=== PATIENT | female | born 1980 | race Two or more races ===

== ENCOUNTER 2022-11-14 08:22 | Emergency (ER) | payer OTHER, MEDICAID ==
[~2022-11-14] VITALS: Ht 157.5 cm; Wt 58.1 kg
[2022-11-14 09:09] LABS: BASOPHILS % (AUTO) 0.2 % (0.0-2.0); EOSINOPHILS # (AUTO) 0.1 K/uL (0.0-0.7); EOSINOPHILS % (AUTO) 1.7 % (0.0-6.0); HEMATOCRIT 45 % (33-45); HEMOGLOBIN 15.1 g/dL (11.5-14.8); LYMPHOCYTES # (AUTO) 0.9 K/uL (0.8-4.8); LYMPHOCYTES % (AUTO) 14.1 % (20.0-44.0); MEAN CORPUSCULAR HEMOGLOBIN 32 PG (26.0-33.0); MEAN CORPUSCULAR HGB CONC 34 g/dl (31.0-36.0); MEAN CORPUSCULAR VOLUME 93 fL (82-100); MONOCYTES # (AUTO) 0.4 K/uL (0.1-1.30); MONOCYTES % (AUTO) 5.9 % (2.0-12.0); NEUTROPHILS # (AUTO) 4.8 K/uL (1.8-8.9); NEUTROPHILS % (AUTO) 78.1 % (43.0-81.0); PLATELET COUNT (AUTO) 252 K/uL (150-450); RED BLOOD CELL COUNT(AUTO) 4.79 MIL/uL (4.0-5.2); RED CELL DISTRIBUTION WIDTH 12.8 % (11.5-15.0); WHITE BLOOD COUNT (AUTO) 6.2 K/uL (4.3-11.0)
[2022-11-14 09:20] LABS: CALCIUM, SERUM 9.2 mg/dL (8.5-10.1); CREATININE 0.8 mg/dL (0.6-1.3); POTASSIUM 3.4 mmol/L (3.5-5.1)
[2022-11-14] MEDS ORDERED: VANCOMYCIN 1 GM in IV D5W 250 ML IV ONE (10:30)
[2022-11-14] MEDS ORDERED: VANCOMYCIN 1 GM /D5W 250 ML PB IV ONE (10:35)
[2022-11-14] MEDS ORDERED: CEPH500C2 PO ×2 (13:16→13:17)
[2022-11-14] MEDS ORDERED: CLIN150C2 PO ×2 (13:16→13:17)
[2022-11-14 13:38] VITALS: BP 119/83; TEMP 98.1; O2SAT 100
== END 2022-11-14 13:38 | disposition home or self-care (01) ==
LOC: ER 08:40
DX: L03.113 Cellulitis of right upper limb (principal); M79.89 Other specified soft tissue disorders
CPT/HCPCS: 99285; 96365; 85025; 80048; 85652; 36415; 86140; J3370 ×2; J7060